=== PATIENT | male | born 1995 | race Caucasian/White ===

== ENCOUNTER 2019-02-24 15:09 | Emergency (ER) | payer OTHER ==
[2019-02-24 15:22] VITALS: BP 123/73
--- NOTE | 2019-02-24 15:29 | ED Physician Documentation ---
PD HPI URI - Stated complaint Stated Complaint: NASAL DRAINAGE/SORE THROAT - Chief complaint Chief Complaint: Heent - History obtained from History obtained from: Patient - History of Present Illness Timing - onset: How many days ago (has been ill for a week with fever and sore throat. Seen at ER [place], [place] and Dx with strep throat via rapid strep test. On Amox for the past 4 days with persistent sore throat, though decreased, and also with congestion and some cough now too.) Timing duration: Weeks (1) Timing details: Gradual onset, Still present Associated symptoms: Fever, Chills, Nasal congestion, Sore throat, Swollen nodes, Dry cough. No: NVD Contributing factors: No: Sick contact, Immunocompromised Similar symptoms before: Has not had sx before Recently seen: Emergency Dept ([place] of state) Review of Systems Constitutional: reports: Fever Nose: reports: Congestion Throat: reports: Sore throat Respiratory: reports: Cough GI: denies: Nausea, Vomiting, Diarrhea Skin: denies: Rash, Lesions PD PAST MEDICAL HISTORY - Past Medical History Cardiovascular: None Respiratory: None Neuro: None Endocrine/Autoimmune: None - Present Medications Home Medications: Ambulatory Orders Medication Instructions Recorded Confirmed Benzonatate [Tessalon Perle] 100 mg PO TID PRN #25 capsule 02/24/19 Cephalexin [Keflex] 500 mg PO TID #21 capsule 02/24/19 Cetirizine [ZyrTEC] 10 mg PO DAILY #15 tablet 02/24/19 dexAMETHasone [Decadron] 4 mg PO DAILY #5 tablet 02/24/19 - Allergies Allergies/Adverse Reactions: Allergies Allergy/AdvReac Type Severity Reaction Status Date / Time No Known Drug Allergies Allergy Verified 02/24/19 15:17 PD ED PE NORMAL - Vitals Vital signs reviewed: Yes - General General: Alert and oriented X 3, No acute distress, Well developed/nourished - HEENT HEENT: No: Pharynx benign (some redness tonsillar area without exudate. No peritonsillar swelling nor deviation. ) - Neck Neck: Supple, no meningeal sign, Other (anterior adenopathy on right. ) - Cardiac Cardiac: RRR, No murmur - Respiratory Respiratory: Clear bilaterally - Abdomen Abdomen: Soft, Non tender - Derm Derm: Normal color, Warm and dry - Extremities Extremities: Normal ROM s pain - Neuro Neuro: Alert and oriented X 3, No motor deficit Results - Vitals Vitals: Vital Signs - 24 hr 02/24/19 15:17 Temperature 37.2 C Heart Rate 76 Respiratory 14 Rate Blood Pressure 123/73 O2 Saturation 96 Oxygen O2 Source Room air PD MEDICAL DECISION MAKING - ED course Complexity details: considered differential (clinically seems like URI but had rapid test positive for strep 4 days ago and is still having sore throat too. ), d/w patient Departure - Departure Disposition: 01 Home, Self Care Clinical Impression: Strep throat Upper respiratory infection Qualifiers: URI type: unspecified URI Qualified Code(s): J06.9 - Acute upper respiratory infection, unspecified Condition: Stable Record reviewed to determine appropriate education?: Yes Prescriptions: Benzonatate [Tessalon Perle] 100 mg PO TID PRN #25 capsule PRN Reason: Cough Cephalexin [Keflex] 500 mg PO TID #21 capsule Cetirizine [ZyrTEC] 10 mg PO DAILY #15 tablet dexAMETHasone [Decadron] 4 mg PO DAILY #5 tablet Comments: It is possible you may have just a viral illness atop the recent strep throat. If so this would mainly be treated for symptoms with anti-inflammatories antihistamines and medicine for cough (see prescriptions for these). However it may be that the strep is not clearing well and is affecting the sinuses too, and so we can change from the amoxicillin to cephalexin in case the strep is persisting. Stay well-hydrated. Recheck if not improved well over the next several days. Discharge Date/Time: 02/24/19 16:18
[2019-02-24] MEDS ORDERED: cephALEXin 250 MG CAPSULE PO STA (16:00)
[2019-02-24] MEDS ORDERED: DEXAMETHASONE 10 MG/ML VIAL PO STA (16:00)
[2019-02-24] MEDS ORDERED: CETIRIZINE 10 MG TABLET PO STA (16:00)
[2019-02-24] MEDS ORDERED: CHERRY SYRUP 10 ML UDC PO ONE (16:00)
== END 2019-02-24 16:18 | disposition home or self-care (01) ==
LOC: ED 15:09
DX: J02.0 Streptococcal pharyngitis (principal); J06.9 Acute upper respiratory infection, unspecified
CPT/HCPCS: 99283; 99284; A9270

== ENCOUNTER 2019-10-21 14:24 | Emergency (ER) | payer OTHER ==
--- NOTE | 2019-10-21 14:32 | ED Physician Documentation ---
PD HPI HEENT - Stated complaint Stated Complaint: COUGH/EAR PRESSURE - History obtained from History obtained from: Patient - History of Present Illness Timing - onset: How many days ago (3-4) Timing - duration: Days (3-4) Timing - details: Abrupt onset, Still present Location: Sinuses, Other (congestion, cough and feeling of wheezing/tightness.) Worsens: Other (activity) Associated symptoms: Cough (with mild productive yellow sputum.). No: Fever, Facial swelling Similar symptoms before: Diagnosis (states has had bronchitis often/yearly in the past, and this is feeling similar.) Review of Systems Constitutional: reports: Myalgias, Fatigue. denies: Fever, Chills Nose: reports: Congestion. denies: Rhinorrhea / runny nose Throat: reports: Sore throat Cardiac: denies: Chest pain / pressure Respiratory: reports: Dyspnea, Cough, Wheezing. denies: Hemoptysis GI: denies: Nausea, Vomiting, Diarrhea Skin: denies: Rash, Lesions Neurologic: denies: Difficulty speaking, Altered mental status, Headache PD PAST MEDICAL HISTORY - Past Medical History Cardiovascular: None Respiratory: None Neuro: None Endocrine/Autoimmune: None GI: None : None HEENT: Other Psych: None Musculoskeletal: None Derm: None - Past Surgical History Past Surgical History: Yes HEENT: Tonsil/Adenoidectomy - Present Medications Home Medications: Ambulatory Orders Medication Instructions Recorded Confirmed Albuterol Sulfate [Albuterol 2 puffs IH QID #1 hfa.aer.ad 10/21/19 Sulfate Hfa] Benzonatate [Tessalon Perle] 100 mg PO TID PRN #25 capsule 10/21/19 Doxycycline Monohydrate 100 mg PO BID #14 tablet 10/21/19 dexAMETHasone [Decadron] 4 mg PO DAILY #5 tablet 10/21/19 - Allergies Allergies/Adverse Reactions: Allergies Allergy/AdvReac Type Severity Reaction Status Date / Time No Known Drug Allergies Allergy Verified 10/21/19 14:34 - Social History Does the pt smoke?: No Smoking Status: Never smoker Does the pt drink ETOH?: No Does the pt have substance abuse?: No - Immunizations Immunizations are current?: Yes - POLST Patient has POLST: No PD ED PE NORMAL - Vitals Vital signs reviewed: Yes - General General: Alert and oriented X 3, No acute distress, Well developed/nourished - HEENT HEENT: Ears normal, Moist mucous membranes, Pharynx benign - Neck Neck: Supple, no meningeal sign, No adenopathy - Cardiac Cardiac: RRR, No murmur - Respiratory Respiratory: Clear bilaterally - Abdomen Abdomen: Soft, Non tender - Derm Derm: Normal color, Warm and dry - Extremities Extremities: No tenderness to palpate, No edema, No calf tenderness / cord - Neuro Neuro: Alert and oriented X 3, No motor deficit, Normal speech Results - Vitals Vitals: Vital Signs - 24 hr 10/21/19 10/21/19 14:30 15:29 Temperature 36.2 C L 36.7 C Heart Rate 48 L 55 L Respiratory 20 16 Rate Blood Pressure 116/74 123/65 O2 Saturation 100 98 Oxygen O2 Source Room air PD MEDICAL DECISION MAKING - ED course Complexity details: considered differential (Seems URI, but with current pandemic, would be prudent to test for COVID. ), d/w patient Departure - Departure Disposition: Home, Self Care Clinical Impression: Upper respiratory infection Qualifiers: URI type: unspecified URI Qualified Code(s): J06.9 - Acute upper respiratory infection, unspecified Condition: Stable Record reviewed to determine appropriate education?: Yes Instructions: ED Upper Resp Infec Abx Tx Follow-Up: [facility]re[facility] [Provider Group] Prescriptions: Albuterol Sulfate [Albuterol Sulfate Hfa] 2 puffs IH QID #1 hfa.aer.ad dexAMETHasone [Decadron] 4 mg PO DAILY #5 tablet Doxycycline Monohydrate 100 mg PO BID #14 tablet Benzonatate [Tessalon Perle] 100 mg PO TID PRN #25 capsule PRN Reason: Cough Comments: Stay at home and rested and away from othersUntil you are feeling better and your Jabari test results are available. Stay well-hydrated and continue your Mucinex and Tylenol. Use albuterol inhaler 2 puffs 4 times a day for the next week for breathing and to reduce cough. Decadron steroid daily for the next 5 days to reduce inflammation of the airways. Doxycycline for potential bacterial infection. Tessalon as needed for reducing bronchial irritation/cough. Follow-up with your primary care if not improving well over the next several days. Discharge Date/Time: 10/21/19 15:36
[2019-10-21] MEDS ORDERED: CHERRY SYRUP 10 ML UDC PO ONE (15:01)
[2019-10-21] MEDS ORDERED: DOXYCYCLINE 100 MG TABLET PO STA (15:01)
[2019-10-21] MEDS ORDERED: DEXAMETHASONE 10 MG/ML VIAL PO STA (15:01)
[2019-10-21] MEDS ORDERED: BENZONATATE 100 MG CAPSULE PO STA (15:01)
[2019-10-21 15:30] VITALS: BP 123/65
== END 2019-10-21 15:36 | disposition home or self-care (01) ==
LOC: ED 14:24
DX: J06.9 Acute upper respiratory infection, unspecified (principal); Z20.828 Contact with and (suspected) exposure to other viral communicable diseases
CPT/HCPCS: 87635; 99283; 99284; A9270

== ENCOUNTER 2020-06-21 22:19 | Outpatient (CLI) | payer OTHER | END 2020-06-21 22:20 | disposition EMS.NT | LOC: EMS 22:19 | DX: R00.0 Tachycardia, unspecified (principal) ==

== ENCOUNTER 2020-06-22 17:21 | Emergency (ER) | payer OTHER ==
--- NOTE | 2020-06-22 18:07 | XRAY Report ---
PROCEDURE: Chest 1 View X-Ray INDICATIONS: Chest pain TECHNIQUE: One view of the chest was acquired. COMPARISON: None FINDINGS: Surgical changes and devices: None. Lungs and pleura: No pleural effusions or pneumothorax. Lungs are clear. Mediastinum: Mediastinal contours appear normal. Heart size is normal. Bones and chest wall: No suspicious bony lesions. Overlying soft tissues appear unremarkable. IMPRESSION: Portable chest study within normal limits. Reviewed by: Gerardo Baldwin MD on 06/22/2020 5:05 PM B[facility] Approved by: Gerardo Baldwin MD on 06/22/2020 5:05 PM BETHANY Station ID: [id number]
[2020-06-22 18:12] LABS: BASOPHILS # (AUTO) 0.1 10^3/uL (0.0-0.1); BASOPHILS % (AUTO) 1.5 %; EOSINOPHILS % (AUTO) 0.1 %; HCT - HEMATOCRIT 45.1 % (42.0-52.0); HGB - HEMOGLOBIN 15.5 g/dL (14.0-18.0); LYMPHOCYTES # (AUTO) 3.1 10^3/uL (1.5-3.5); LYMPHOCYTES % (AUTO) 40.8 %; MEAN CORPUSCULAR HEMOGLOBIN 28.4 pg (27.0-31.0); MEAN CORPUSCULAR HGB CONC 34.4 g/dL (32.0-36.0); MEAN CORPUSCULAR VOLUME 82.6 fL (80.0-94.0); MEAN PLATELET VOLUME 9.6 fL (7.4-11.4); MONOCYTES # (AUTO) 0.6 10^3/uL (0.0-1.0); MONOCYTES % (AUTO) 7.4 %; NEUTROPHILS # (AUTO) 3.8 10^3/uL (1.5-6.6); NEUTROPHILS % (AUTO) 49.9 %; PLT - PLATELET COUNT 281 10^3/uL (130-450); RED BLOOD COUNT 5.46 10^6/uL (4.70-6.10); RED CELL DISTRIBUTION WIDTH 13.7 % (12.0-15.0); WHITE BLOOD COUNT 7.6 x10^3/uL (4.8-10.8)
--- NOTE | 2020-06-22 18:24 | ED Physician Documentation ---
History of Present Illness - Stated complaint Stated Complaint: CHEST PRESSURE - Chief complaint Chief Complaint: Cardiac - Additonal information Additional information: 24-year-old male presents emergency department for evaluation of the left lower chest wall pain that he noticed last night. He reports that it hurts when he moves and when he takes a deep breath. He denies nausea shortness of air. He got exceedingly concerned last night and called 911. He reports EMS told him his EKG was normal as well as his vital signs. Patient has no history of hypertension or diabetes. He does use nicotine. Over the last several weeks he has been doing a new workout program. This week they have focused on upper body and chest exercises therefore he worked out his chest 3 times. He did take ibuprofen with minimal relief of the pain. No unilateral leg swelling, no hemoptysis, no travel or immobilization. No surgery. no hx f DVT or cancer Review of Systems Constitutional: denies: Fever, Chills Eyes: reports: Reviewed and negative Ears: reports: Reviewed and negative Nose: reports: Reviewed and negative Throat: reports: Reviewed and negative Cardiac: reports: Chest pain / pressure. denies: Palpitations, Pedal edema, Calf pain Respiratory: denies: Dyspnea, Cough GI: denies: Abdominal Pain, Abdominal Swelling, Nausea, Vomiting : denies: Dysuria, Frequency, Hesitancy Skin: denies: Rash, Lesions Musculoskeletal: denies: Neck pain, Back pain, Extremity pain Neurologic: reports: Reviewed and negative PD PAST MEDICAL HISTORY - Past Medical History Past Medical History: Yes Cardiovascular: None Respiratory: None Neuro: None Endocrine/Autoimmune: None GI: None : None HEENT: Other Psych: ADD/ADHD Musculoskeletal: None Derm: None - Past Surgical History Past Surgical History: Yes HEENT: Tonsil/Adenoidectomy - Present Medications Home Medications: Ambulatory Orders Medication Instructions Recorded Confirmed Lisdexamfetamine Dimesylate 50 mg ORAL DAILY 06/22/20 06/22/20 [Vyvanse] - Allergies Allergies/Adverse Reactions: Allergies Allergy/AdvReac Type Severity Reaction Status Date / Time No Known Drug Allergies Allergy Verified 06/22/20 17:30 - Social History Does the pt smoke?: No Smoking Status: Never smoker Does the pt drink ETOH?: No Does the pt have substance abuse?: No - Immunizations Immunizations are current?: Yes - POLST Patient has POLST: No PD ED PE NORMAL - General General: Alert and oriented X 3, No acute distress, Well developed/nourished - HEENT HEENT: Atraumatic, Moist mucous membranes, Pharynx benign - Neck Neck: Supple, no meningeal sign, Thyroid normal, No JVD - Cardiac Cardiac: RRR, No murmur, Other (tenderness chest wall with palpation) - Respiratory Respiratory: No respiratory distress, Clear bilaterally - Abdomen Abdomen: Normal bowel sounds Results - Vitals Vitals: Vital Signs - 24 hr 06/22/20 06/22/20 17:30 18:08 Temperature 36.6 C Heart Rate 83 77 Respiratory 16 14 Rate Blood Pressure 148/93 H 124/80 O2 Saturation 98 98 Oxygen O2 Source Room air - EKG (time done) 1732 Rate: Rate (enter#) (75) Rhythm: NSR [place]: Normal Intervals: Normal [place]. No: Prolonged QT QRS: Normal Ischemia: ST elevation c/w repol Compare to prior EKG: Old EKG unavailable Computer interpretation: Agree with computer - Labs Labs: Laboratory Tests 06/22/20 06/22/20 06/22/20 17:55 17:55 17:55 WBC 7.6 RBC 5.46 Hgb 15.5 Hct 45.1 MCV 82.6 MCH 28.4 MCHC 34.4 RDW 13.7 Plt Count 281 MPV 9.6 Neut # (Auto) 3.8 Lymph # (Auto) 3.1 [place] # (Auto) 0.6 Eos # (Auto) 0.0 Baso # (Auto) 0.1 Absolute Nucleated RBC 0.00 Nucleated RBC % 0.0 Sodium 138 Potassium 3.5 Chloride 102 Carbon Dioxide 25 Anion Gap 11.0 BUN 16 Creatinine 1.1 Estimated GFR (MDRD) 81 L Glucose 92 Calcium 9.8 Total Bilirubin 0.5 AST 56 H ALT 71 H Alkaline Phosphatase 72 Troponin I High Sens 4.1 Total Protein 7.9 Albumin 5.0 Globulin 2.9 Albumin/Globulin Ratio 1.7 Lipase 20 L - Rads (name of study) CXR Radiology: Final report received (No acute cardiopulmonary process) PD MEDICAL DECISION MAKING - ED course Complexity details: reviewed results, re-evaluated patient, d/w patient ED course: 24-year-old male presents emergency department for evaluation of acute left anterior rib wall chest pain began last night. EKG is nonischemic though consistent with early repole. High-sensitivity troponin is negative. Screening chest x-ray otherwise unremarkable. On exam the chest pain is reproducible. This gentleman reports that over the last week he is been doing a new exercise routine in which they work out one body part 3 times a week. This week they focused on chest. Given this information I suspect that he has chest wall strain musculoskeletal in origin. He is PERC negative as well as Wells criteria negative therefore low suspicion for PE. Defer D-dimer or pulmonary angio CT. Screening labs do reveal a moderate LFT elevation. I discussed this with the patient. He reports that he abstains from alcohol though he does take kava which he thinks is likely the culprit. He has no upper abdominal pain or jaundice or bilirubin elevation. I have recommended that he follow-up with [facility] for reevaluation of his liver function tests or perhaps further imaging and evaluation. Recommen IBuprofen/tylenol. Emergent return precautions discussed Departure - Departure Disposition: 01 Home, Self Care Clinical Impression: Elevated LFTs Chest pain Qualifiers: Chest pain type: intercostal pain Qualified Code(s): R07.82 - Intercostal pain Condition: Stable Record reviewed to determine appropriate education?: Yes Instructions: ED Chest Pain Costochondritis Comments: Alex you were seen today in the emergency department for chest pain. As we discussed what you have is chest wall pain. This is likely from working out your chest too much over the last week. Your screening EKG chest x-ray and labs do not reveal any worrisome findings with your heart. The incidental finding with your labs does show elevated liver function test. This may be associated with the cause of the supplement. However elevated liver function tests are never normal and can be a sign that the liver is stressed. Please discuss this with [facility]. You may benefit from reevaluating your liver function tests or ultrasound of your liver or referral to a barrel straightener.
[2020-06-22 18:47] LABS: ALBUMIN/GLOBULIN RATIO 1.7 (1.0-2.2); BILIRUBIN,TOTAL 0.5 mg/dL (0.2-1.0); CALCIUM 9.8 mg/dL (8.5-10.3); CREATININE 1.1 mg/dL (0.6-1.2); POTASSIUM 3.5 mmol/L (3.5-5.0); TOTAL PROTEIN 7.9 g/dL (6.7-8.2)
[2020-06-22 19:04] VITALS: BP 116/57
== END 2020-06-22 19:11 | disposition home or self-care (01) ==
LOC: ED 17:21
DX: R07.82 Intercostal pain (principal); R79.89 Other specified abnormal findings of blood chemistry; F90.9 Attention-deficit hyperactivity disorder, unspecified type; Z79.899 Other long term (current) drug therapy
CPT/HCPCS: 36415; 80053; 83690; 84484; 85025; 93005; 99284

== ENCOUNTER 2020-07-23 15:18 | Emergency (ER) | payer OTHER ==
--- OUTSIDE RECORDS SUMMARY | 2020-07-23 15:22 | EXTERNAL MEDICAL SUMMARY RPT | Continuity of Care Document ---
:1995 Demographics Phone Unavailable Preferred Language Unknown Marital Status Unknown Hindu Affiliation Unknown Race Unknown Ethnic Group Unknown Author Organization [place] Address [address] [phone] Phone Allergies Encounters Medications Problems Results
--- OUTSIDE RECORDS SUMMARY | 2020-07-23 15:30 | EXTERNAL MEDICAL SUMMARY RPT | Continuity of Care Document ---
:1995 Demographics Phone Unavailable Preferred Language Unknown Marital Status Unknown Mormonism Affiliation Unknown Race Unknown Ethnic Group Unknown Author Organization [place] Address [address] [place] [address] Phone Allergies Encounters Medications Problems Results
[2020-07-23] MEDS ORDERED: SODIUM CHLORIDE 0.9% 1,000 ML IV STA (16:01)
[2020-07-23 16:26] LABS: BASOPHILS # (AUTO) 0.1 10^3/uL (0.0-0.1); BASOPHILS % (AUTO) 1.2 %; EOSINOPHILS # (AUTO) 0.2 10^3/uL (0.0-0.7); EOSINOPHILS % (AUTO) 3.1 %; HCT - HEMATOCRIT 40.1 % (42.0-52.0); HGB - HEMOGLOBIN 13.8 g/dL (14.0-18.0); LYMPHOCYTES # (AUTO) 1.6 10^3/uL (1.5-3.5); LYMPHOCYTES % (AUTO) 27.6 %; MEAN CORPUSCULAR HEMOGLOBIN 29.3 pg (27.0-31.0); MEAN CORPUSCULAR HGB CONC 34.4 g/dL (32.0-36.0); MEAN CORPUSCULAR VOLUME 85.1 fL (80.0-94.0); MEAN PLATELET VOLUME 9.2 fL (7.4-11.4); MONOCYTES # (AUTO) 0.4 10^3/uL (0.0-1.0); MONOCYTES % (AUTO) 7.5 %; NEUTROPHILS # (AUTO) 3.6 10^3/uL (1.5-6.6); NEUTROPHILS % (AUTO) 60.4 %; PLT - PLATELET COUNT 228 10^3/uL (130-450); RED BLOOD COUNT 4.71 10^6/uL (4.70-6.10); WHITE BLOOD COUNT 5.9 x10^3/uL (4.8-10.8)
--- NOTE | 2020-07-23 16:28 | ED Physician Documentation ---
History of Present Illness - Stated complaint Stated Complaint: SHAKY/FAINT/VOMITING - Chief complaint Chief Complaint: Neuro - History obtained from History obtained from: Patient - History of Present Illness Timing: Today Pain level max: 0 Pain level now: 0 - Additonal information Additional information: 24-year-old male presents to the emergency department stating that today he has been feeling lightheaded when standing up quickly. He states that this does not feel like the room is spinning, but rather that he is lightheaded like he will pass out. He states that at 1 point he went to the bathroom today, felt lightheaded dizzy, nauseated and looked in the mirror and saw that he was pale. He had emesis x1. He states that he felt better after that. He states he did not eat and drink very much today. No chest pain. No shortness of breath. No abdominal pain. No trauma. Nothing currently makes it better or worse. Review of Systems Ten Systems: 10 systems reviewed and negative Constitutional: denies: Fever, Chills Ears: denies: Ear pain Nose: denies: Rhinorrhea / runny nose, Congestion Throat: denies: Sore throat Cardiac: denies: Chest pain / pressure, Palpitations Respiratory: denies: Dyspnea, Cough, Hemoptysis, Wheezing GI: reports: Nausea, Vomiting. denies: Abdominal Pain, Diarrhea, Hematemesis, Bloody / black stool : denies: Dysuria Skin: denies: Rash Musculoskeletal: denies: Neck pain, Back pain Neurologic: denies: Headache PD PAST MEDICAL HISTORY - Past Medical History Cardiovascular: None Respiratory: None Neuro: None Endocrine/Autoimmune: None GI: None : None HEENT: Other Psych: ADD/ADHD Musculoskeletal: None Derm: None - Past Surgical History Past Surgical History: Yes HEENT: Tonsil/Adenoidectomy - Present Medications Home Medications: Ambulatory Orders Medication Instructions Recorded Confirmed Lisdexamfetamine Dimesylate 50 mg ORAL DAILY 06/22/20 06/22/20 [Vyvanse] - Allergies Allergies/Adverse Reactions: Allergies Allergy/AdvReac Type Severity Reaction Status Date / Time No Known Drug Allergies Allergy Verified 07/23/20 15:36 - Social History Does the pt smoke?: No Smoking Status: Never smoker Does the pt drink ETOH?: No Does the pt have substance abuse?: No - Immunizations Immunizations are current?: Yes - POLST Patient has POLST: No PD ED PE NORMAL - Vitals Vital signs reviewed: Yes - General General: Alert and oriented X 3, No acute distress, Well developed/nourished - HEENT HEENT: Atraumatic, PERRL, EOMI, Ears normal, Moist mucous membranes - Neck Neck: Supple, no meningeal sign, No bony TTP, No JVD, No bruit - Cardiac Cardiac: RRR, No murmur, Strong equal pulses - Respiratory Respiratory: No respiratory distress, Clear bilaterally - Abdomen Abdomen: Soft, Non tender, Non distended - Derm Derm: Warm and dry - Extremities Extremities: No edema, No calf tenderness / cord - Neuro Neuro: Alert and oriented X 3, rotary operator 2-12 intact, No motor deficit, No sensory deficit, Normal speech, Other (Normal cerebellar test. No nystagmus. Negative Hallpike) Eye Opening: Spontaneous Motor: Obeys Commands Verbal: Oriented GCS Score: 15 - Psych Psych: Normal mood, Normal affect Results - Vitals Vitals: Vital Signs - 24 hr 07/23/20 07/23/20 07/23/20 15:31 18:09 18:48 Temperature 36.2 C L 36.3 C L Heart Rate 66 65 68 Respiratory 14 18 14 Rate Blood Pressure 139/101 H 126/69 122/71 O2 Saturation 98 100 100 Oxygen O2 Source Room air - EKG (time done) 1605 Rate: Rate (enter#) (63) Rhythm: NSR [place]: Normal Intervals: Normal [place] QRS: Normal Ischemia: ST elevation c/w repol - Labs Labs: Laboratory Tests 07/23/20 07/23/20 16:19 16:19 WBC 5.9 RBC 4.71 Hgb 13.8 L Hct 40.1 L MCV 85.1 MCH 29.3 MCHC 34.4 RDW 13.0 Plt Count 228 MPV 9.2 Neut # (Auto) 3.6 Lymph # (Auto) 1.6 [place] # (Auto) 0.4 Eos # (Auto) 0.2 Baso # (Auto) 0.1 Absolute Nucleated RBC 0.00 Nucleated RBC % 0.0 Sodium 135 Potassium 3.4 L Chloride 98 L Carbon Dioxide 28 Anion Gap 9.0 BUN 13 Creatinine 1.0 Estimated GFR (MDRD) 90 Glucose 104 H Calcium 9.3 Total Bilirubin 0.5 AST 18 ALT 22 Alkaline Phosphatase 58 Total Creatine Kinase 179 Total Protein 7.3 Albumin 4.9 Globulin 2.4 Albumin/Globulin Ratio 2.0 Lipase 20 L PD MEDICAL DECISION MAKING - ED course Complexity details: reviewed results, re-evaluated patient, considered differential, d/w patient ED course: No acute findings on laboratory testing, EKG, library monitor. Symptoms resolved with IV fluids. Possible dehydration? Patient is well-appearing, nontoxic. Afebrile. No evidence of pulmonary embolus. No dyspnea. No hypoxia. No tachycardia. No pleuritic chest pain. No recent travel. No calf tenderness or swelling. We will have him increase his hydration at home and follow-up with his doctor for further care. Patient counseled regarding signs and symptoms for which I believe and urgent re-evaluation would be necessary. Patient with good understanding of and agreement to plan and is comfortable going home at this time This document was made in part using voice recognition software. While efforts are made to proofread this document, sound alike and grammatical errors may occur. Departure - Departure Disposition: 01 Home, Self Care Clinical Impression: Vasovagal near syncope, Dehydration Condition: Good Instructions: ED Dehydration, ED Near Syncope Vasovagal Follow-Up: Ana Royal MD [Primary Care Provider] - Within 1 week Comments: Drinking plenty of fluids. Return if you worsen. Your laboratory testing does not show any acute abnormalities today. Follow-up with your doctor for further care. Discharge Date/Time: 07/23/20 18:49
[2020-07-23 16:56] LABS: ALBUMIN 4.9 g/dL (3.2-5.5); BILIRUBIN,TOTAL 0.5 mg/dL (0.2-1.0); CALCIUM 9.3 mg/dL (8.5-10.3); POTASSIUM 3.4 mmol/L (3.5-5.0); TOTAL PROTEIN 7.3 g/dL (6.7-8.2)
[2020-07-23 18:49] VITALS: BP 122/71
== END 2020-07-23 18:49 | disposition home or self-care (01) ==
LOC: ED 15:18
DX: E86.0 Dehydration (principal); R55 Syncope and collapse
CPT/HCPCS: 36415; 80053; 82550; 83690; 85025; 93005; 96360; 96361; 99284

== ENCOUNTER 2020-09-05 02:26 | Emergency (ER) | payer OTHER ==
[2020-09-05 03:16] VITALS: BP 132/81
[2020-09-05] MEDS ORDERED: PANTOPRAZOLE 40 MG TABLET PO STA (03:20)
--- NOTE | 2020-09-05 03:22 | ED Physician Documentation ---
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 He states that he has had right knee pain and has been taking increased doses of ibuprofen recently this month and also has been noticing that his stomach is little irritated. He threw up chili from dinner around 1:30 AM and also had some streaks of blood in it. Denies blood in the stool, dark stools, lightheadedness, weakness. Does endorse mild, intermittent epigastric pain worse after eating. Review of Systems Ten Systems: 10 systems reviewed and negative Constitutional: denies: Fever, Chills GI: reports: Abdominal Pain, Vomiting. denies: Nausea, Diarrhea, Bloody / black stool PD PAST MEDICAL HISTORY - Past Medical History Past Medical History: Yes Cardiovascular: None Respiratory: None Neuro: None Endocrine/Autoimmune: None GI: None : None HEENT: Other Psych: ADD/ADHD Musculoskeletal: None Derm: None - Past Surgical History Past Surgical History: Yes HEENT: Tonsil/Adenoidectomy - Present Medications Home Medications: Ambulatory Orders Medication Instructions Recorded Confirmed Lisdexamfetamine Dimesylate 50 mg ORAL DAILY 06/22/20 09/05/20 [Vyvanse] Pantoprazole [Protonix] 40 mg PO QDAC #30 tablet 09/05/20 - Allergies Allergies/Adverse Reactions: Allergies Allergy/AdvReac Type Severity Reaction Status Date / Time No Known Drug Allergies Allergy Verified 09/05/20 03:16 - Social History Does the pt smoke?: No Smoking Status: Never smoker Does the pt drink ETOH?: No Does the pt have substance abuse?: No - Immunizations Immunizations are current?: Yes - POLST Patient has POLST: No PD ED PE NORMAL - Vitals Vital signs reviewed: Yes - General General: Alert and oriented X 3, No acute distress, Well developed/nourished - HEENT HEENT: Atraumatic, PERRL, EOMI, Other (pink conjunctiva) - Neck Neck: Supple, no meningeal sign - Cardiac Cardiac: RRR - Respiratory Respiratory: No respiratory distress, Clear bilaterally - Abdomen Abdomen: Non tender, Non distended, Other (Discomfort to epigastric palpation) - Back Back: No CVA TTP - Derm Derm: Normal color - Extremities Extremities: No deformity - Neuro Neuro: Alert and oriented X 3 - Psych Psych: Normal mood, Normal affect Results - Vitals Vitals: Vital Signs - 24 hr 09/05/20 03:00 Temperature 36.0 C L Heart Rate 74 Respiratory 16 Rate Blood Pressure 132/81 H O2 Saturation 98 Oxygen O2 Source Room air PD MEDICAL DECISION MAKING - ED course ED course: 24-year-old man presents with gastric irritation and small amount of blood in the vomitus. He is well-appearing with normal vital signs and pink conjunctive a asymptomatic at present. Advised him to follow-up with his flight surgeon for referral to gastroenterology. Return precautions given. Departure - Departure Disposition: Home, Self Care Clinical Impression: Hematemesis, Stomach pain Condition: Good Instructions: Gastric Ulcer Prescriptions: Pantoprazole [Protonix] 40 mg PO QDAC #30 tablet Comments: You are seen in the emergency department for blood in your vomit. It is likely that the increase ibuprofen use this month has caused irritation to your stomach lining which is resulting in some mild bleeding. Please stop taking all NSAIDs, avoid spicy foods, and drink lots of water. Start taking Protonix and follow-up with your flight surgeon for referral to gastroenterology. He will likely need an endoscopy if your symptoms continue. Return to the emergency department if you have any new or worsening symptoms or other concerns. Forms: Activity restrictions
== END 2020-09-05 03:29 | disposition home or self-care (01) ==
LOC: ED 02:26
DX: K92.0 Hematemesis (principal)
CPT/HCPCS: 99282; 99284; A9270

== ENCOUNTER 2021-06-17 08:00 | Outpatient (CLI) | payer OTHER | END 2021-06-18 16:15 | disposition home or self-care (01) | LOC: LAB.N 08:00 | PROVIDERS: ATTEND Physician Assistant | DX: J06.9 Acute upper respiratory infection, unspecified (principal); Z20.822 Contact with and (suspected) exposure to COVID-19 ==

== ENCOUNTER 2023-04-28 14:28 | Outpatient (CLI) | payer OTHER | END 2023-04-28 14:29 | disposition EMS.NT | LOC: EMS 14:28 | DX: F41.9 Anxiety disorder, unspecified (principal) ==

== ENCOUNTER 2023-05-03 15:39 | Emergency (ER) | payer OTHER ==
[2023-05-03 16:13] VITALS: O2SAT 100
[2023-05-03 16:51] LABS: BASOPHILS # (AUTO) 0.1 10^3/uL (0.0-0.1); BASOPHILS % (AUTO) 1.1 %; HCT - HEMATOCRIT 45.8 % (42.0-52.0); HGB - HEMOGLOBIN 15.2 g/dL (14.0-18.0); LYMPHOCYTES # (AUTO) 2.3 10^3/uL (1.5-3.5); LYMPHOCYTES % (AUTO) 36.1 %; MEAN CORPUSCULAR HGB CONC 33.2 g/dL (32.0-36.0); MEAN CORPUSCULAR VOLUME 84.3 fL (80.0-94.0); MEAN PLATELET VOLUME 9.6 fL (7.4-11.4); MONOCYTES # (AUTO) 0.5 10^3/uL (0.0-1.0); MONOCYTES % (AUTO) 8.5 %; NEUTROPHILS # (AUTO) 3.4 10^3/uL (1.5-6.6); NEUTROPHILS % (AUTO) 53.8 %; PLT - PLATELET COUNT 248 10^3/uL (130-450); RED BLOOD COUNT 5.43 10^6/uL (4.70-6.10); RED CELL DISTRIBUTION WIDTH 13.8 % (12.0-15.0); WHITE BLOOD COUNT 6.4 x10^3/uL (4.8-10.8)
--- NOTE | 2023-05-03 16:58 | XRAY Report ---
PROCEDURE: Chest 1V INDICATIONS: L sided CP TECHNIQUE: One view of the chest was acquired. COMPARISON: None. FINDINGS: Surgical changes and devices: None. Lungs and pleura: No pleural effusions or pneumothorax. Lungs are clear. Mediastinum: Mediastinal contours appear normal. Heart size is normal. Bones and chest wall: No suspicious bony lesions. Overlying soft tissues appear unremarkable. IMPRESSION: No acute cardiopulmonary process. Reviewed by: Gaston Harrison MD on 05/03/2023 4:57 PM PDT Approved by: Gaston Harrison MD on 05/03/2023 4:57 PM PDT Station ID: [id number]
[2023-05-03 17:15] LABS: BUN - BLOOD UREA NITROGEN 12 mg/dL (6-20); CALCIUM 9.7 mg/dL (8.5-10.3); CARBON DIOXIDE - CO2 30 mmol/L (21-32); CHLORIDE 101 mmol/L (101-111); CREATININE 0.8 mg/dL (0.6-1.3); GFR - MDRD 114 (>89); GLUCOSE 93 mg/dL (74-104); POTASSIUM 4.4 mmol/L (3.5-4.5); SODIUM 136 mmol/L (135-145)
[2023-05-03 17:16] LABS: TROPONIN I HIGH SENSITIVITY < 2.3 ng/L (2.3-19.7)
--- NOTE | 2023-05-03 17:36 | ED Physician Documentation ---
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 Patient states he started hyperventilating this morning causing an episode of vomiting. However he has since had lunch and otherwise no longer has any nausea. Still having occasional episodes where he has spasms or twitches in the left pectoralis region. Denies recent trauma or injury. Did try a dose of ibuprofen and Tylenol today without any improvement. Does not feel like he is dehydrated. Denies any recent exertion or activity causing strain. Nothing makes his symptoms better or worse. Does report waking up in an awkward position this morning and states that they do have a mattress Topper which is made sleep a little bit more challenging recently. Denies history of high blood pressure, diabetes, high cholesterol. Review of Systems Constitutional: denies: Fever Cardiac: reports: Chest pain / pressure Respiratory: denies: Dyspnea GI: denies: Abdominal Pain, Vomiting PD PAST MEDICAL HISTORY - Past Medical History Past Medical History: No Cardiovascular: None Respiratory: None Neuro: None Endocrine/Autoimmune: None GI: None : None HEENT: Other Psych: ADD/ADHD Musculoskeletal: None Derm: None - Past Surgical History Past Surgical History: Yes HEENT: Tonsil/Adenoidectomy - Present Medications Home Medications: Ambulatory Orders Medication Instructions Recorded Confirmed Lisdexamfetamine Dimesylate 50 mg ORAL DAILY 06/22/20 05/03/23 [Vyvanse] Cyclobenzaprine [Flexeril] 10 mg PO TID PRN #6 tablet 05/03/23 - Allergies Allergies/Adverse Reactions: Allergies Allergy/AdvReac Type Severity Reaction Status Date / Time No Known Drug Allergies Allergy Verified 05/03/23 17:24 - Social History Does the pt smoke?: No Smoking Status: Never smoker Does the pt drink ETOH?: No Does the pt have substance abuse?: No - Immunizations Immunizations are current?: Yes - POLST Patient has POLST: No PD ED PE NORMAL - General General: Alert and oriented X 3, No acute distress, Well developed/nourished - HEENT HEENT: Atraumatic, Moist mucous membranes, Pharynx benign - Neck Neck: Supple, no meningeal sign - Cardiac Cardiac: RRR, Strong equal pulses, Other (Left-sided chest wall tenderness to palpation; No rash) - Respiratory Respiratory: No respiratory distress, Clear bilaterally - Abdomen Abdomen: Soft, Non tender, Non distended - Derm Derm: Warm and dry - Neuro Neuro: Normal speech Results - Vitals Vitals: Vital Signs - 24 hr 05/03/23 05/03/23 16:00 18:08 Temperature 36.5 C Heart Rate 84 78 Respiratory 16 14 Rate Blood Pressure 128/83 H 118/78 O2 Saturation 100 100 Oxygen O2 Source Room air - EKG (time done) 1602 EKG releavant findings:: EKG personally interpreted by author of this note. Relevant findings are: Rate 65, normal sinus rhythm, no STEMI, QTc 430 - Labs Labs: Laboratory Tests 05/03/23 05/03/23 16:45 16:45 WBC 6.4 RBC 5.43 Hgb 15.2 Hct 45.8 MCV 84.3 MCH 28.0 MCHC 33.2 RDW 13.8 Plt Count 248 MPV 9.6 Neut # (Auto) 3.4 Lymph # (Auto) 2.3 [place] # (Auto) 0.5 Eos # (Auto) 0.0 Baso # (Auto) 0.1 Absolute Nucleated RBC 0.00 Nucleated RBC % 0.0 Sodium 136 Potassium 4.4 Chloride 101 Carbon Dioxide 30 Anion Gap 5.0 L BUN 12 Creatinine 0.8 Estimated GFR (MDRD) 114 Glucose 93 Calcium 9.7 Troponin I High Sens < 2.3 L PD Medical Decision Making - ED course Complexity details: reviewed results, d/w patient ED course: Pt with muscle twitching/spasm to L chest. EKG non ischemic. CBC, chemistries, troponin without significant findings. No risk factors for ACS. Chest XR clear. PERC negative. Discussed possible etiologies of symptoms and treatment plan. AWare of need for follow up with PCP and reviewed usual return precautions. Departure - Departure Disposition: 01 Home, Self Care Clinical Impression: Muscle twitching Condition: Stable Instructions: ED Spasm Muscle Follow-Up: ABELINO Burt [Provider Group] Prescriptions: Cyclobenzaprine [Flexeril] 10 mg PO TID PRN #6 tablet PRN Reason: Spasms Comments: Your testing today does not show any abnormalities with electrolytes or with your heart. Your chest x-ray is clear and your EKG is normal. A number of things can cause muscle twitches, most commonly a lack of sleep, issues with nutrition, overexertion or stress. I would make sure you continue to stay hydrated and try to get some good sleep tonight. We can try a small amount of a muscle relaxer to see if this helps as you are feeling some tightness in the region. I sent this prescription to [facility] in [place]. Please do not take this medication with anything else that could be sedating such as your nightly trazodone. I would also recommend follow-up with your PCM at the [facility]. Return to the ER with any worsening symptoms. Forms: PCP List, Activity restrictions Discharge Date/Time: 05/03/23 17:40
[2023-05-03 18:15] VITALS: BP 118/78
== END 2023-05-03 17:40 | disposition home or self-care (01) ==
LOC: ED 15:39
DX: R25.3 Fasciculation (principal)
CPT/HCPCS: 36415; 80048; 84484; 85025; 93005; 99284

== ENCOUNTER 2023-05-27 07:26 | Emergency (ER) | payer OTHER ==
--- NOTE | 2023-05-27 08:21 | ED Physician Documentation ---
History of Present Illness - Stated complaint Stated Complaint: SOA - Chief complaint Chief Complaint: Resp - History obtained from History obtained from: Patient - Additonal information Additional information: The patient comes to the emergency department chief complaint of shortness of breath and cough over the last 5 days or so. The patient states that he has not had any other symptoms with this, and has never had a formal diagnosis of asthma but does have an albuterol inhaler. He states that he used his albuterol inhaler throughout the day for the first 2 days but then ran out, and so went to the walk-in clinic. He was found to be wheezy there and was given a nebulizer treatment and "a 5-day shot of steroids". He was not prescribed a course of steroids for home, but his albuterol inhaler was refilled. The patient states that things seem to be going better for a couple of days but that the symptoms really ramped up again last night. He took his albuterol inhaler and one of his 's asthma meds, but that he still feeling short of breath and wheezy. The patient is not a smoker and nobody smokes at his home. He does not have any history of exercise intolerance. He states that they do sleep with the windows open and sometimes it sounds like their neighbors are smoking weed and it is the smoke is blowing in their window. He also notes that they have 2 cats who like to sleep on the windowsill above the bed and that the hair gets stuck to the curtain over the window, and he does not think that is helping his symptoms either. No other complaints at this time. PD PAST MEDICAL HISTORY - Past Medical History Past Medical History: Yes Cardiovascular: None Respiratory: None Neuro: None Endocrine/Autoimmune: None GI: None : None HEENT: Other Psych: ADD/ADHD Musculoskeletal: None Derm: None - Past Surgical History Past Surgical History: Yes HEENT: Tonsil/Adenoidectomy - Present Medications Home Medications: Ambulatory Orders Medication Instructions Recorded Confirmed Lisdexamfetamine Dimesylate 50 mg ORAL DAILY 06/22/20 05/27/23 [Vyvanse] Dextroamphetamine/Amphetamine 10 mg PO DAILY 05/27/23 05/27/23 [Adderall 10 mg Tablet] Ipratropium/Albuterol [Combivent 4 gm IH Q6H #1 ea 05/27/23 Respimat] predniSONE [Deltasone] 10 mg PO [id number] #42 tab 05/27/23 traZODone [Desyrel] 50 mg PO HS 05/27/23 05/27/23 - Allergies Allergies/Adverse Reactions: Allergies Allergy/AdvReac Type Severity Reaction Status Date / Time No Known Drug Allergies Allergy Verified 05/27/23 07:54 - Social History Does the pt smoke?: No Smoking Status: Never smoker Does the pt drink ETOH?: No Does the pt have substance abuse?: No - Immunizations Immunizations are current?: Yes - POLST Patient has POLST: No PD ED PE NORMAL - Vitals Vital signs reviewed: Yes - General General: Alert and oriented X 3, No acute distress, Well developed/nourished - HEENT HEENT: Atraumatic, PERRL, EOMI, Moist mucous membranes - Neck Neck: Supple, no meningeal sign - Cardiac Cardiac: RRR, No murmur - Respiratory Respiratory: No respiratory distress (Speaking in full sentences, respirations nonlabored.), Other (Moderate wheezes bilateral lung ruvalcaba diffusely. Slightly prolonged expiratory phase.) - Derm Derm: Normal color, Warm and dry, No rash - Extremities Extremities: No deformity - Neuro Neuro: Other (Grossly intact) - Psych Psych: Normal mood, Normal affect Results - Vitals Vitals: Vital Signs - 24 hr 05/27/23 05/27/23 05/27/23 07:38 08:34 10:09 Temperature 36.4 C L 36.6 C Heart Rate 95 79 88 Respiratory 22 17 23 Rate Blood Pressure 127/83 H 128/86 H O2 Saturation 96 97 Oxygen O2 Source Room air - Labs Labs: Laboratory Tests 05/27/23 08:38 Nasal Adenovirus (PCR) NOT DETECTED Nasal B. parapertussis DNA (PCR) NOT DETECTED Nasal Coronavir 229E PCR NOT DETECTED Nasal Coronavir HKU1 PCR NOT DETECTED Nasal Coronavir NL63 PCR NOT DETECTED Nasal Coronavir OC43 PCR NOT DETECTED Nasal Enterovir/Rhinovir PCR NOT DETECTED Nasal Influenza B PCR NOT DETECTED Nasal Influenza A PCR NOT DETECTED Nasal Parainfluen 1 PCR NOT DETECTED Nasal Parainfluen 2 PCR NOT DETECTED Nasal Parainfluen 3 PCR NOT DETECTED Nasal Parainfluen 4 PCR NOT DETECTED Nasal RSV (PCR) NOT DETECTED Nasal B.pertussis DNA PCR NOT DETECTED Nasal C.pneumoniae (PCR) NOT DETECTED David Human Metapneumo PCR NOT DETECTED Nasal M.pneumoniae (PCR) NOT DETECTED Nasal SARS-CoV-2 (PCR) NOT DETECTED PD Medical Decision Making - ED course Complexity details: reviewed results, re-evaluated patient, considered differential, d/w patient ED course: The patient was treated symptomatically with a DuoNeb and Decadron. He was worked up with a chest x-ray and respiratory PCR panel, which were both negative. He was clinically improved, though still mildly wheezy. The pt was stable for d/c home, with good sats and no respiratory distress. The pt was not prescribed a steroid course at his walk-in clinic visit, and was erroneously told that the injected steroid would be effective for 5 days, which it was not. He has been given a prescription for prednisone taper and Combivent inhaler. We have discussed the need for follow-up and the usual indications for return. Departure - Departure Disposition: Home, Self Care Clinical Impression: Asthma exacerbation Qualifiers: Asthma severity: mild Asthma persistence: intermittent Qualified Code(s): J45 .21 - Mild intermittent asthma with (acute) exacerbation Condition: Stable Instructions: Asthma Dc Prescriptions: Ipratropium/Albuterol [Combivent Respimat] 4 gm IH Q6H #1 ea predniSONE [Deltasone] 10 mg PO [id number] #42 tab Comments: Your chest x-ray looks good and your viral panel is negative. It is not clear what is kicking up your asthma, but it could be a viral infection that we cannot test for, or it could be some environmental allergies. Your wheezing is improved after the nebulizer treatment, and you have been given another dose of steroids here. You should be on a steroid taper at home to help get you through this, as the injected steroid will only really be effective for a couple of days. Please follow-up as planned with your primary doctor to talk about further intervention or treatment. The prescription for your Combivent inhaler and your steroid taper has been elec tronically transmitted to the [facility] pharmacy in [place]. Please pick the prescriptions up today and start the inhaler today and the steroid tomorrow. Forms: PCP List Discharge Date/Time: 05/27/23 10:12
[2023-05-27] MEDS: IPRATROPIUM/ALBUTEROL 3 ML NEB INH STA (08:24)
[2023-05-27] MEDS: DEXAMETHASONE 10 MG/ML VIAL IM STA (08:34)
--- NOTE | 2023-05-27 08:52 | XRAY Report ---
PROCEDURE: Chest 1V INDICATIONS: sob, cough TECHNIQUE: One view of the chest was acquired. COMPARISON: 05/03/2023. FINDINGS: Surgical changes and devices: None. Lungs and pleura: No pleural effusions or pneumothorax. Lungs are clear. Mediastinum: Mediastinal contours appear normal. Heart size is normal. Bones and chest wall: No suspicious bony lesions. Overlying soft tissues appear unremarkable. IMPRESSION: No acute cardiopulmonary process. Reviewed by: Fidencio Smyth MD on 05/27/2023 8:50 AM PDT Approved by: Fidencio Smyth MD on 05/27/2023 8:50 AM PDT Station ID: [id number]
[2023-05-27 09:35] LABS: B. PARAPERTUSSIS- RESP PCR PAN NOT DETECTED; B. PERTUSSIS- RESP PCR PANEL NOT DETECTED; C. PNEUMONIAE- RESP PCR PANEL NOT DETECTED; CORONAVIRUS 229E-RESP PCR NOT DETECTED; CORONAVIRUS HKU1-RESP PCR NOT DETECTED; CORONAVIRUS NL63-RESP PCR NOT DETECTED; CORONAVIRUS OC43-RESP PCR NOT DETECTED; HUMAN METAPNEUMOVIRUS NOT DETECTED; INFLUENZA A- RESP PCR PANEL NOT DETECTED; INFLUENZA B - RESP PCR PANEL NOT DETECTED; M. PNEUMONIAE- RESP PCR PANEL NOT DETECTED; PARAINFLUENZA VIRUS 1 NOT DETECTED; PARAINFLUENZA VIRUS 2 NOT DETECTED; PARAINFLUENZA VIRUS 3 NOT DETECTED; PARAINFLUENZA VIRUS 4 NOT DETECTED; RHINOVIRUS/ENTEROVIRUS NOT DETECTED; RSV- RESP PCR PANEL NOT DETECTED; SARS-CoV-2 -RESP PCR PANEL NOT DETECTED
[2023-05-27 10:12] VITALS: BP 128/86; O2SAT 97
== END 2023-05-27 10:12 | disposition home or self-care (01) ==
LOC: ED 07:26
DX: J45.21 Mild intermittent asthma with (acute) exacerbation (principal); Z11.52 Encounter for screening for COVID-19
CPT/HCPCS: 87633; 94640; 96372; 99283

== ENCOUNTER 2023-06-29 07:54 | Outpatient (CLI) | payer OTHER ==
[2023-06-29] MEDS: ALBUTEROL 1 PUFF INH STA (12:00)
== END 2023-06-29 07:55 | disposition home or self-care (01) ==
LOC: RT 07:54
PROVIDERS: ATTEND Nurse Practitioner Family
DX: R06.02 Shortness of breath (principal); R06.2 Wheezing
CPT/HCPCS: 94060; 94727; 94729

== ENCOUNTER 2023-08-02 20:56 | Emergency (ER) | payer MEDICAID, OTHER ==
[2023-08-02 21:24] LABS: BASOPHILS # (AUTO) 0.1 10^3/uL (0.0-0.1); BASOPHILS % (AUTO) 1.6 %; HCT - HEMATOCRIT 45.7 % (42.0-52.0); HGB - HEMOGLOBIN 15.5 g/dL (14.0-18.0); LYMPHOCYTES # (AUTO) 3.5 10^3/uL (1.5-3.5); LYMPHOCYTES % (AUTO) 50.3 %; MEAN CORPUSCULAR HEMOGLOBIN 29.6 pg (27.0-31.0); MEAN CORPUSCULAR HGB CONC 33.9 g/dL (32.0-36.0); MEAN CORPUSCULAR VOLUME 87.2 fL (80.0-94.0); MEAN PLATELET VOLUME 9.4 fL (7.4-11.4); MONOCYTES # (AUTO) 0.4 10^3/uL (0.0-1.0); MONOCYTES % (AUTO) 5.2 %; NEUTROPHILS # (AUTO) 2.9 10^3/uL (1.5-6.6); NEUTROPHILS % (AUTO) 42.5 %; PLT - PLATELET COUNT 264 10^3/uL (130-450); RED BLOOD COUNT 5.24 10^6/uL (4.70-6.10); RED CELL DISTRIBUTION WIDTH 13.4 % (12.0-15.0); WHITE BLOOD COUNT 6.9 x10^3/uL (4.8-10.8)
[2023-08-02] MEDS: SODIUM CHLORIDE 0.9% 1,000 ML IV STA (21:40)
[2023-08-02 21:42] LABS: ALBUMIN 4.4 g/dL (3.2-5.5); ALBUMIN/GLOBULIN RATIO 1.8 (1.0-2.2); BILIRUBIN,TOTAL 0.3 mg/dL (0.2-1.0); CALCIUM 9.1 mg/dL (8.5-10.3); CREATININE 0.9 mg/dL (0.6-1.3); ETOH - ETHANOL 236.7 mg/dL; POTASSIUM 4.1 mmol/L (3.5-4.5); TOTAL PROTEIN 6.9 g/dL (6.4-8.9)
--- NOTE | 2023-08-02 22:27 | ED Physician Documentation ---
History of Present Illness - Stated complaint Stated Complaint: WITHDRAWAL - Chief complaint Chief Complaint: General - History obtained from History obtained from: Patient - Additonal information Additional information: The patient comes to the emergency department with chief complaint of needing help getting off his alcohol. The patient states he has been drinking 3 bottles of wine a day and that he is tired of drinking and wants to stop. He states that he has had an alcohol problem for some time and has successfully quit previously with either Librium or Valium as an outpatient. He is also connected with and has a sponsor. The patient states that he does not really wish to go inpatient at this time and would prefer to have an outpatient taper. He states that his last drink was about 2 hours before coming here. He thinks he does had about his usual amount of alcohol over the course of the day. He denies any nausea or vomiting currently. No tremors. He has no history of delirium tremens or seizures with withdrawal previously. No other complaints at this time. PD PAST MEDICAL HISTORY - Past Medical History Past Medical History: Yes Cardiovascular: None Respiratory: None Neuro: None Endocrine/Autoimmune: None GI: None : None HEENT: Other Psych: ADD/ADHD Musculoskeletal: None Derm: None - Past Surgical History Past Surgical History: Yes HEENT: Tonsil/Adenoidectomy - Present Medications Home Medications: Ambulatory Orders Medication Instructions Recorded Confirmed Lisdexamfetamine Dimesylate 50 mg ORAL DAILY 06/22/20 05/27/23 [Vyvanse] Dextroamphetamine/Amphetamine 10 mg PO DAILY 05/27/23 05/27/23 [Adderall 10 mg Tablet] Ipratropium/Albuterol [Combivent 4 gm IH Q6H #1 ea 05/27/23 Respimat] predniSONE [Deltasone] 10 mg PO [id number] #42 tab 05/27/23 traZODone [Desyrel] 50 mg PO HS 05/27/23 05/27/23 Fluticasone Propionate 1 puffs IH BID #1 each 07/10/23 [Fluticasone Propionate Hfa] diazePAM [Valium] 5 mg PO Q4H PRN #15 tablet 08/02/23 - Allergies Allergies/Adverse Reactions: Allergies Allergy/AdvReac Type Severity Reaction Status Date / Time No Known Drug Allergies Allergy Verified 08/02/23 21:04 - Social History Does the pt smoke?: No Smoking Status: Never smoker Does the pt drink ETOH?: Yes ETOH Use: Wine Does the pt have substance abuse?: No - Immunizations Immunizations are current?: Yes - POLST Patient has POLST: No PD ED PE NORMAL - Vitals Vital signs reviewed: Yes - General General: Alert and oriented X 3, No acute distress, Well developed/nourished - HEENT HEENT: Atraumatic, EOMI, Moist mucous membranes - Neck Neck: Supple, no meningeal sign - Cardiac Cardiac: RRR, No murmur - Respiratory Respiratory: No respiratory distress, Clear bilaterally - Abdomen Abdomen: Soft, Non tender, Non distended - Derm Derm: Normal color, Warm and dry, No rash - Extremities Extremities: No deformity, No edema, No calf tenderness / cord - Neuro Neuro: Alert and oriented X 3, No motor deficit, No sensory deficit, Other (The patient does not appear clinically intoxicated.) - Psych Psych: Normal mood, Normal affect Results - Vitals Vitals: Vital Signs - 24 hr 08/02/23 21:00 Temperature 36.1 C L Heart Rate 106 H Respiratory 18 Rate Blood Pressure 153/98 H O2 Saturation 98 Oxygen O2 Source Room air - Labs Labs: Laboratory Tests 08/02/23 08/02/23 21:20 21:20 WBC 6.9 RBC 5.24 Hgb 15.5 Hct 45.7 MCV 87.2 MCH 29.6 MCHC 33.9 RDW 13.4 Plt Count 264 MPV 9.4 Neut # (Auto) 2.9 Lymph # (Auto) 3.5 [place] # (Auto) 0.4 Eos # (Auto) 0.0 Baso # (Auto) 0.1 Absolute Nucleated RBC 0.00 Nucleated RBC % 0.0 Sodium 142 Potassium 4.1 Chloride 106 Carbon Dioxide 28 Anion Gap 8.0 BUN 16 Creatinine 0.9 Estimated GFR (MDRD) 100 Glucose 92 Calcium 9.1 Total Bilirubin 0.3 AST 22 ALT 12 Alkaline Phosphatase 100 Total Protein 6.9 Albumin 4.4 Globulin 2.5 Albumin/Globulin Ratio 1.8 Lipase 11 Ethyl Alcohol 236.7 PD Medical Decision Making - ED course Complexity details: reviewed results, re-evaluated patient, considered differential, d/w patient ED course: The patient was given a liter of fluid in the emergency department and an oral dose of Valium. His alcohol level was 237 and the remainder of his labs were unremarkable. The patient desired outpatient treatment rather than inpatient and I did prescribe a taper for him to this and. I have admonished him not to drink while he is on the taper. He has called his AA sponsor to come and give him a ride and his sponsor will assist him in getting any further help he needs. The patient understands he also may return to the emergency department for further concerns. Departure - Departure Disposition: 01 Home, Self Care Clinical Impression: Acute alcohol intoxication Qualifiers: Complication of substance-induced condition: uncomplicated Qualified Code(s): F10.920 - Alcohol use, unspecified with intoxication, uncomplicated Condition: Stable Instructions: ED Alcohol Intoxication Prescriptions: diazePAM [Valium] 5 mg PO Q4H PRN #15 tablet PRN Reason: Alcohol Withdrawal Comments: Your labs overall look good tonight. Your alcohol level was elevated at about 237, which is about 3 times the driving limit. You have been given a liter of IV fluids and an initial dose of Valium to help bring you down from the alcohol. A prescription for Valium taper has been electronically transmitted to the [facility] pharmacy in [place]. You should take 1 tablet every 4 hours for the first 24 hours, then 1 tablet every 6 hours for the next 24 hours, then 1 tablet every 8 hours for the next 24 hours, then 1 tablet every 12 hours for the last day. Please reach out to your AA sponsor to help you with further resources for staying clean and sober. Please follow-up with your primary care physician for general medical care.
[2023-08-02] MEDS: diazePAM 5 MG TABLET PO STA (22:32)
[2023-08-02 22:54] VITALS: BP 122/75; O2SAT 97
== END 2023-08-02 22:44 | disposition home or self-care (01) ==
LOC: ED 20:56
DX: F10.129 Alcohol abuse with intoxication, unspecified (principal); Y90.7 Blood alcohol level of 200-239 mg/100 ml
CPT/HCPCS: 36415; 80053; 82077; 83690; 85025; 99283; A9270

== ENCOUNTER 2023-09-23 19:25 | Emergency (ER) | payer MEDICAID ==
[2023-09-23 19:58] LABS: BASOPHILS # (AUTO) 0.1 10^3/uL (0.0-0.1); BASOPHILS % (AUTO) 0.7 %; HGB - HEMOGLOBIN 14.4 g/dL (14.0-18.0); LYMPHOCYTES # (AUTO) 3.1 10^3/uL (1.5-3.5); LYMPHOCYTES % (AUTO) 29.3 %; MEAN CORPUSCULAR HEMOGLOBIN 30.1 pg (27.0-31.0); MEAN CORPUSCULAR HGB CONC 33.5 g/dL (32.0-36.0); MEAN CORPUSCULAR VOLUME 89.8 fL (80.0-94.0); MEAN PLATELET VOLUME 9.3 fL (7.4-11.4); MONOCYTES # (AUTO) 0.7 10^3/uL (0.0-1.0); MONOCYTES % (AUTO) 6.4 %; NEUTROPHILS # (AUTO) 6.5 10^3/uL (1.5-6.6); NEUTROPHILS % (AUTO) 62.5 %; PLT - PLATELET COUNT 275 10^3/uL (130-450); RED BLOOD COUNT 4.79 10^6/uL (4.70-6.10); RED CELL DISTRIBUTION WIDTH 14.2 % (12.0-15.0); WHITE BLOOD COUNT 10.5 x10^3/uL (4.8-10.8)
[2023-09-23 20:15] LABS: ALBUMIN 4.4 g/dL (3.2-5.5); ALBUMIN/GLOBULIN RATIO 1.6 (1.0-2.2); ALKALINE PHOSPHATASE 72 IU/L (42-121); ALT ALANINE AMINOTRANSFERASE 10 IU/L (10-60); AST ASPARTATE AMINOTRANSFERASE 16 IU/L (10-42); BILIRUBIN,TOTAL 0.3 mg/dL (0.2-1.0); BUN - BLOOD UREA NITROGEN 8 mg/dL (6-20); CALCIUM 9.3 mg/dL (8.5-10.3); CARBON DIOXIDE - CO2 31 mmol/L (21-32); CHLORIDE 106 mmol/L (101-111); CREATININE 0.9 mg/dL (0.6-1.3); GFR - MDRD 100 (>89); GLUCOSE 119 mg/dL (74-104); POTASSIUM 4.1 mmol/L (3.5-4.5); SODIUM 142 mmol/L (135-145); TOTAL PROTEIN 7.1 g/dL (6.4-8.9)
[2023-09-23 20:17] LABS: LIPASE < 10 U/L (11-82)
[2023-09-23] MEDS: ONDANSETRON 4 MG/2 ML VIAL IVP STA (20:24)
[2023-09-23] MEDS: FAMOTIDINE 20 MG/2 ML VIAL IVP STA (20:24)
--- NOTE | 2023-09-23 20:24 | ED Physician Documentation ---
History of Present Illness - Stated complaint Stated Complaint: ETOH/VOMIT/BODY ACHES - Chief complaint Chief Complaint: Abd Pain - History obtained from History obtained from: Patient - Additonal information Additional information: 27-year-old man with history of alcohol dependence presents with request for help to quit drinking. Patient was sober but then relapsed recently and is requesting a Benzodiazepine taper to help him attain sobriety. He does have an alcoholic Anonymous sponsor and plans to reach out to them. PD PAST MEDICAL HISTORY - Past Medical History Cardiovascular: None Respiratory: None Neuro: None Endocrine/Autoimmune: None GI: None : None HEENT: Other Psych: ADD/ADHD Musculoskeletal: None Derm: None - Past Surgical History Past Surgical History: Yes HEENT: Tonsil/Adenoidectomy - Present Medications Home Medications: Ambulatory Orders Medication Instructions Recorded Confirmed Lisdexamfetamine Dimesylate 50 mg ORAL DAILY 06/22/20 05/27/23 [Vyvanse] traZODone [Desyrel] 50 mg PO HS 05/27/23 05/27/23 Ondansetron Odt [Zofran Odt] 4 mg TL Q6H PRN #10 tablet 09/23/23 diazePAM [Valium] 5 - 10 mg PO QID PRN #15 tablet 09/23/23 - Allergies Allergies/Adverse Reactions: Allergies Allergy/AdvReac Type Severity Reaction Status Date / Time No Known Drug Allergies Allergy Verified 09/23/23 19:39 - Social History Does the pt smoke?: No Smoking Status: Never smoker Does the pt drink ETOH?: No Does the pt have substance abuse?: No - Immunizations Immunizations are current?: Yes - POLST Patient has POLST: No PD ED PE NORMAL - Vitals Vital signs reviewed: Yes - General General: Alert and oriented X 3, No acute distress, Well developed/nourished - HEENT HEENT: Atraumatic, PERRL, EOMI - Neck Neck: Supple, no meningeal sign - Cardiac Cardiac: RRR - Respiratory Respiratory: No respiratory distress, Clear bilaterally - Abdomen Abdomen: Non tender, Non distended - Derm Derm: Normal color, Warm and dry - Extremities Extremities: No deformity - Neuro Neuro: Alert and oriented X 3, No motor deficit, No sensory deficit - Psych Psych: Normal mood, Normal affect Results - Vitals Vitals: Vital Signs - 24 hr 09/23/23 09/23/23 19:27 20:42 Temperature 36.1 C L Heart Rate 78 82 Respiratory 16 18 Rate Blood Pressure 132/90 H 126/88 H O2 Saturation 99 96 Oxygen O2 Source Room air - Labs Labs: Laboratory Tests 09/23/23 09/23/23 09/23/23 19:54 19:54 19:54 WBC 10.5 RBC 4.79 Hgb 14.4 Hct 43.0 MCV 89.8 MCH 30.1 MCHC 33.5 RDW 14.2 Plt Count 275 MPV 9.3 Neut # (Auto) 6.5 Lymph # (Auto) 3.1 [place] # (Auto) 0.7 Eos # (Auto) 0.0 Baso # (Auto) 0.1 Absolute Nucleated RBC 0.00 Nucleated RBC % 0.0 Sodium 142 Potassium 4.1 Chloride 106 Carbon Dioxide 31 Anion Gap 5.0 L BUN 8 Creatinine 0.9 Estimated GFR (MDRD) 100 Glucose 119 H Calcium 9.3 Total Bilirubin 0.3 AST 16 ALT 10 Alkaline Phosphatase 72 Total Protein 7.1 Albumin 4.4 Globulin 2.7 Albumin/Globulin Ratio 1.6 Lipase < 10 L Ethyl Alcohol 253.9 PD Medical Decision Making - ED course ED course: 27-year-old man presents with request for alcohol cessation resources. These were provided and a Valium taper was given. Return precautions given. Departure - Departure Disposition: 01 Home, Self Care Clinical Impression: Alcohol abuse Condition: Stable Instructions: Withdrawal Alcohol What Expect Prescriptions: diazePAM [Valium] 5 - 10 mg PO QID PRN #15 tablet PRN Reason: Alcohol Withdrawal Ondansetron Odt [Zofran Odt] 4 mg TL Q6H PRN #10 tablet PRN Reason: Nausea / Vomiting Comments: You were seen in the emergency department for alcohol dependence. Prescription sent to [facility]. Please follow-up with your AA sponsor, your primary care provider and return to the emergency department if you have any new or worsening symptoms or other concerns. Forms: PCP List Discharge Date/Time: 09/23/23 20:45
[2023-09-23] MEDS: FAMOTIDINE 20 MG TABLET PO STA (20:40)
[2023-09-23] MEDS: THIAMINE 100 MG TABLET PO STA (20:40)
[2023-09-23] MEDS: ONDANSETRON ODT 4 MG TABLET TL STA (20:40)
[2023-09-23 20:46] VITALS: BP 126/88; O2SAT 96
== END 2023-09-23 20:45 | disposition home or self-care (01) ==
LOC: ED 19:25
DX: F10.229 Alcohol dependence with intoxication, unspecified (principal); Y90.8 Blood alcohol level of 240 mg/100 ml or more; Z79.899 Other long term (current) drug therapy
CPT/HCPCS: 36415; 80053; 82077; 83690; 85025; 99283; A9270; Q0162